=== PATIENT | female | born 1975 | race Caucasian/White ===

== ENCOUNTER → 2017-02-16 | Outpatient (CLI) | payer BC | LOC: MC.RAD 07:30 | DX: Z12.31 Encounter for screening mammogram for malignant neoplasm of breast (principal) ==

== ENCOUNTER → 2017-04-05 | Outpatient (CLI) | payer BC | LOC: COL.RAD 10:17 | DX: M46.82 Other specified inflammatory spondylopathies, cervical region (principal); G89.29 Other chronic pain ==

== ENCOUNTER → 2017-04-21 | Outpatient (CLI) | payer BC | LOC: MHCPAIN 12:10 | DX: G89.29 Other chronic pain (principal); M47.812 Spondylosis without myelopathy or radiculopathy, cervical region; G24.9 Dystonia, unspecified | CPT/HCPCS: G0463 ==

== ENCOUNTER → 2017-05-03 | Outpatient (CLI) | payer BC | LOC: MHCPAIN 09:08 | DX: G89.29 Other chronic pain (principal); M50.31 Other cervical disc degeneration, high cervical region; G24.9 Dystonia, unspecified; Z87.891 Personal history of nicotine dependence | CPT/HCPCS: G0463; J0585 ==

== ENCOUNTER → 2017-07-06 | Outpatient (CLI) | payer BC | LOC: MHCPAIN 15:18 | DX: G89.29 Other chronic pain (principal); M50.31 Other cervical disc degeneration, high cervical region; G24.9 Dystonia, unspecified | CPT/HCPCS: G0463 ==

== ENCOUNTER → 2017-08-02 | Outpatient (CLI) | payer BC | LOC: MHCPAIN 13:54 | DX: G24.3 Spasmodic torticollis (principal) | CPT/HCPCS: 64616; 64646; J0585 ==

== ENCOUNTER → 2017-11-01 | Outpatient (CLI) | payer BC | LOC: MHCPAIN 07:50 | DX: G89.29 Other chronic pain (principal); M50.31 Other cervical disc degeneration, high cervical region; G24.9 Dystonia, unspecified | CPT/HCPCS: G0463 ==

== ENCOUNTER → 2017-11-08 | Outpatient (CLI) | payer BC | LOC: MHCPAIN 15:24 | DX: G24.3 Spasmodic torticollis (principal) | CPT/HCPCS: J0585 ==

== ENCOUNTER → 2018-02-07 | Outpatient (CLI) | payer BC | LOC: MHCPAIN 07:58 | DX: G89.29 Other chronic pain (principal); M50.90 Cervical disc disorder, unspecified, unspecified cervical region; G24.9 Dystonia, unspecified | CPT/HCPCS: G0463 ==

== ENCOUNTER → 2018-04-04 | Outpatient (CLI) | payer BC | LOC: MHCPAIN 07:55 | DX: G89.29 Other chronic pain (principal); M50.90 Cervical disc disorder, unspecified, unspecified cervical region; G24.9 Dystonia, unspecified | CPT/HCPCS: G0463 ==

== ENCOUNTER → 2018-09-28 | Outpatient (CLI) | payer BC | LOC: MHCPAIN 07:49 | DX: G89.29 Other chronic pain (principal); R51 Headache; M47.812 Spondylosis without myelopathy or radiculopathy, cervical region; G24.9 Dystonia, unspecified | CPT/HCPCS: G0463 ==

== ENCOUNTER → 2018-10-18 | Outpatient (CLI) | payer BC | LOC: MHCPAIN 13:20 | DX: G24.9 Dystonia, unspecified (principal) | CPT/HCPCS: J0585 ==

== ENCOUNTER → 2019-04-18 | Outpatient (CLI) | payer BC | LOC: MHCPAIN 07:59 | DX: R51 Headache (principal); M47.812 Spondylosis without myelopathy or radiculopathy, cervical region | CPT/HCPCS: G0463 ==

== ENCOUNTER → 2019-04-26 | Outpatient (CLI) | payer BC | LOC: MHCPAIN 14:40 | DX: G24.3 Spasmodic torticollis (principal) | CPT/HCPCS: J0585 ==

== ENCOUNTER → 2019-10-24 | Outpatient (CLI) | payer BC | LOC: MHCPAIN 08:05 | DX: M47.812 Spondylosis without myelopathy or radiculopathy, cervical region (principal); M54.2 Cervicalgia; M79.2 Neuralgia and neuritis, unspecified; G89.29 Other chronic pain | CPT/HCPCS: G0463 ==

== ENCOUNTER → 2019-11-07 | Outpatient (CLI) | payer BC | LOC: MHCPAIN 14:58 | DX: G89.29 Other chronic pain (principal); G24.3 Spasmodic torticollis; M54.2 Cervicalgia ==

== ENCOUNTER → 2020-05-07 | Outpatient (CLI) | payer BC | LOC: MHCPAIN 07:53 | DX: G24.3 Spasmodic torticollis (principal); M54.2 Cervicalgia ==

== ENCOUNTER → 2020-10-15 | Outpatient (CLI) | payer BC | LOC: MHCPAIN 07:52 | DX: M47.812 Spondylosis without myelopathy or radiculopathy, cervical region (principal); M79.18 Myalgia, other site; M54.2 Cervicalgia; G24.8 Other dystonia; G89.29 Other chronic pain | CPT/HCPCS: G0463 ==

== ENCOUNTER → 2020-10-22 | Outpatient (CLI) | payer BC | LOC: MHCPAIN 14:40 | DX: G24.3 Spasmodic torticollis (principal); M54.2 Cervicalgia ==

== ENCOUNTER → 2021-04-22 | Outpatient (CLI) | payer BC | LOC: MHCPAIN 07:54 | DX: M47.812 Spondylosis without myelopathy or radiculopathy, cervical region (principal); M43.6 Torticollis; M54.2 Cervicalgia; G24.3 Spasmodic torticollis | CPT/HCPCS: G0463 ==

== ENCOUNTER → 2021-04-30 | Outpatient (CLI) | payer BC | LOC: MHCPAIN 12:17 | DX: G24.3 Spasmodic torticollis (principal); G54.2 Cervical root disorders, not elsewhere classified | CPT/HCPCS: J0585 ==

== ENCOUNTER → 2021-10-28 | Outpatient (CLI) | payer BC | LOC: MHCPAIN 07:55 | DX: G24.3 Spasmodic torticollis (principal); M54.2 Cervicalgia; M47.812 Spondylosis without myelopathy or radiculopathy, cervical region; M79.18 Myalgia, other site | CPT/HCPCS: G0463 ==

== ENCOUNTER → 2021-11-04 | Outpatient (CLI) | payer BC | LOC: MHCPAIN 12:58 | DX: M43.6 Torticollis (principal); G24.8 Other dystonia; M54.2 Cervicalgia; M54.6 Pain in thoracic spine | CPT/HCPCS: J0585 ==

== ENCOUNTER → 2023-07-07 | Outpatient (CLI) | payer BC ==
[~2023-07-07] MED LIST: NS 10 ML IV ONE
== END ==
LOC: MHCPAIN 08:00
DX: M54.2 Cervicalgia (principal); G24.3 Spasmodic torticollis; M54.14 Radiculopathy, thoracic region; M62.838 Other muscle spasm
CPT/HCPCS: J0585

== ENCOUNTER → 2023-12-28 | Outpatient (CLI) | payer BC | LOC: MHCPAIN 08:17 | DX: G24.3 Spasmodic torticollis (principal); M54.2 Cervicalgia | CPT/HCPCS: G0463 ==

== ENCOUNTER → 2024-01-05 | Outpatient (CLI) | payer BC ==
[~2024-01-05] MED LIST changes: -NS 10 ML IV ONE; +NS 30 ML IV ONE
== END ==
LOC: MHCPAIN 12:41
DX: G24.9 Dystonia, unspecified (principal); M43.6 Torticollis; M47.812 Spondylosis without myelopathy or radiculopathy, cervical region
CPT/HCPCS: J0585